=== PATIENT | female | born 2000 | race Caucasian/White ===

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

== ENCOUNTER 2020-03-27 16:40 | Emergency (ER) | payer OTHER ==
[~2020-03-27] VITALS: Ht 165.1 cm; Wt 59.0 kg
[2020-03-27 16:41] VITALS: BP 115/70; Ht 165.1 cm; Wt 59.0 kg
== END 2020-03-27 18:30 | disposition home or self-care (01) ==
LOC: ED 16:40
DX: B34.9 Viral infection, unspecified (principal)